=== PATIENT | male | born 1990 | race Caucasian/White ===

== ENCOUNTER 2018-04-26 04:02 | Emergency (ER) | payer SELFPAY ==
[~2018-04-26] VITALS: Ht 165.1 cm; Wt 75.3 kg
[2018-04-26 04:02] VITALS: BP 127/69
--- NOTE | 2018-04-26 04:02 | NUR ---
PATIENT BIB [facility] TO ER CHAIR Deangelo
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
[2018-04-26] MEDS ORDERED: PHENYLEPHRINE 0.5% 15 ML BTL NS ONE (04:10)
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
== END 2018-04-26 04:17 ==
LOC: MED 04:02
DX: Z02.89 Encounter for other administrative examinations (principal); S00.33XA Contusion of nose, initial encounter; R04.0 Epistaxis; W51.XXXA Accidental striking against or bumped into by another person, initial encounter; Y93.89 Activity, other specified; Y92.89 Other specified places as the place of occurrence of the external cause; Y99.8 Other external cause status
CPT/HCPCS: 99283